=== PATIENT | female | born 1990 | race Caucasian/White ===

== ENCOUNTER 2022-02-24 11:03 | Day surgery (SDC) | payer BC ==
[2022-02-23 09:17] VITALS: BMI 30.2
[2022-02-24] MEDS ORDERED: Fentanyl 250 MCG/5 ML VIAL ONE (13:19)
[2022-02-24] MEDS ORDERED: Bupivacaine/Epinephrine 0.25% 30 ML VIAL ONE (13:29)
[2022-02-24] MEDS ORDERED: Sodium Chloride 0.9% 100 ML ONE (13:37)
[2022-02-24] MEDS ORDERED: cefOXitin 2 GM VIAL ONE (13:37)
[2022-02-24] MEDS ORDERED: Glycopyrrolate 0.2 MG/ML 5 ML SYRINGE ONE (13:53)
[2022-02-24] MEDS ORDERED: Rocuronium Bromide 10 MG/ML (10ML VIAL) ONE (13:53)
[2022-02-24] MEDS ORDERED: PROPOFOL 200 MG/20 ML VIAL ONE (13:53)
[2022-02-24] MEDS ORDERED: Ketorolac Tromethamine 30 MG/ML VIAL ONE (13:53)
[2022-02-24] MEDS ORDERED: Dexamethasone 20 MG/5 ML VIAL ONE (13:53)
[2022-02-24] MEDS ORDERED: NEOSTIGMINE 3 MG/3 ML SYR 3 MG/3 ML SYRINGE ONE (13:53)
[2022-02-24] MEDS ORDERED: Ondansetron PF 4 MG/2 ML Vial ONE (13:53)
[2022-02-24] MEDS ORDERED: Lidocaine 1% PF 5 ML VIAL ONE (13:53)
[2022-02-24] MEDS ORDERED: ePHEDrine 50 MG/ML VIAL ONE (13:53)
[2022-02-24] MEDS ORDERED: Fentanyl 100 MCG/2 ML VIAL ONE ×2 (14:47→14:59)
[2022-02-24] MEDS ORDERED: HYDROcodone/Acetaminophen 5/325 mg Tablet ONE (16:19)
== END 2022-02-24 16:25 | disposition home or self-care (01) ==
LOC: SDC 11:03
PROVIDERS: ATTEND Surgery
PROC: 0FT44ZZ Resection of Gallbladder, Percutaneous Endoscopic Approach (ICD-10-PCS; principal; 2022-02-24)
DX: K80.10 Calculus of gallbladder with chronic cholecystitis without obstruction (principal); J30.2 Other seasonal allergic rhinitis; Z79.899 Other long term (current) drug therapy; Z88.2 Allergy status to sulfonamides; Z91.013 Allergy to seafood
CPT/HCPCS: 88304; C1889; J0694; J1100; J1885; J2405; J2704; J3010; J3490